=== PATIENT | male | born 2000 | race African-American/Black ===

== ENCOUNTER 2021-09-21 21:44 | Emergency (ER) | payer MEDICAID ==
[~2021-09-21] VITALS: Ht 175.3 cm; Wt 112.5 kg
[2021-09-21] MEDS ORDERED: CYCLOBENZAPRINE 10MG TABLET PO ONE (23:45)
[2021-09-21] MEDS ORDERED: KETOROLAC 30MG/ML VIAL IM ONE (23:45)
[2021-09-22] MEDS ORDERED: NAPR-1176 MT (00:02)
[2021-09-22 00:48] VITALS: BP 129/78
== END 2021-09-22 00:50 | disposition home or self-care (01) ==
LOC: ER 21:44
DX: M54.9 Dorsalgia, unspecified (principal)
CPT/HCPCS: 96372; 99283; J1885; Z7610